=== PATIENT | male | born 1980 | race Caucasian/White ===

== ENCOUNTER 2021-05-04 05:29 | Emergency (ER) | payer BC ==
--- NOTE | 2021-05-04 05:52 | ED Abdominal Pain ---
General Chief Complaint: Abdominal/GI Problems Stated Complaint: ABD PAIN Nursing Triage Note: Pt complaining of mid lower abd pain that started a couple of days ago and has continued to get worse Source of Information: Patient Exam Limitations: No Limitations History of Present Illness Date Seen by Provider: May 04, 2021 Time Seen by Provider: 05:40 Initial Comments 38-year-old male presents with 2-day history of lower abdominal pain. Pain located in the center of his abdomen and with some associated painful urination and dark urine. States that fever yesterday of over 100. Also thinks he might be constipated, but not sure Allergies and Home Medications Allergies Coded Allergies: No Known Drug Allergies (Unverified , 05/04/21) Home Medications Ibuprofen 800 Mg Tablet, 800 MG PO Q8H PRN for PAIN Prescribed by: REJI JAMESON on 05/04/21 0634 Patient Home Medication List Home Medication List Reviewed: Yes Review of Systems Review of Systems Constitutional: No chills, No dizziness; fever, malaise; No weakness EENTM: No Symptoms Reported Respiratory: No Symptoms Reported Cardiovascular: No Symptoms Reported Gastrointestinal: See HPI, Abdominal Pain (midline lower), Constipated ( "maybe"); Denies Diarrhea, Denies Nausea, Denies Poor Appetite, Denies Rectal Bleeding, Denies Vomiting Genitourinary: See HPI, Burning; Denies Discharge, Denies Drainage, Denies Frequency, Denies Flank Pain, Denies Hematuria; Pain; Denies Urgency Musculoskeletal: No back pain, No joint pain Skin: No change in color, No rash Past Ggqtbgh-Lasdwu-Uvvrfk Hx Patient Social History Tobacco Use?: Yes Tobacco type used: Cigarettes Smoking Status: Current Everyday Smoker Substance use?: No Alcohol Use?: Yes Alcohol Frequency: Couple times a week Pt feels they are or have been: No Past Medical History Surgery/Hospitalization HX: Appendectomy Physical Exam Vital Signs Vital Signs - First Documented 05/04/21 05:35 Temp 37.1 Pulse 84 Resp 18 B/P (MAP) 159/81 (107) Pulse Ox 95 O2 Delivery Room Air Capillary Refill : Less Than 3 Seconds Height/Weight/BMI Height: '" Weight: lbs. oz. kg; BMI Method: General Appearance: WD/WN, no apparent distress Respiratory: chest non-tender, lungs clear Cardiovascular: regular rate, rhythm, no edema Gastrointestinal: soft, no organomegaly, no pulsatile mass; No distended, No guarding, No rebound; tenderness (midline lower abdomen-suprapubic); No hernia, No mass, No hepatomegaly, No spleenomegaly Genital/Rectal: normal genital exam (no evidence of hernia); No blood at urethral meatus, No tenderness Back: no CVA tenderness, no vertebral tenderness Neurologic/Psychiatric: alert, normal mood/affect, oriented x 3 Skin: normal color, warm/dry Progress/Results/Core Measures Results/Orders Lab Results Laboratory Tests Test 05/04/21 05:52 05/04/21 05:55 Range/Units Urine Color YELLOW Urine Clarity CLEAR Urine pH 8.5 5-9 Urine Specific [place] 1.015 L 1.016-1.022 Urine Protein 1+ H NEGATIVE Urine Glucose (UA) NEGATIVE NEGATIVE Urine Ketones NEGATIVE NEGATIVE Urine Nitrite NEGATIVE NEGATIVE Urine Bilirubin NEGATIVE NEGATIVE Urine Urobilinogen 1.0 < = 1.0 MG/DL Urine Leukocyte Esterase NEGATIVE NEGATIVE Urine RBC (Auto) NEGATIVE NEGATIVE Urine RBC 0-2 /HPF Urine WBC 0-2 /HPF Urine Squamous Epithelial Cells RARE /HPF Urine Crystals PRESENT H /LPF Urine Amorphous Sediment FEW TRINI PHOSPHATE H /LPF Urine Bacteria NONE /HPF Urine Casts NONE /LPF Urine Mucus SMALL H /LPF Urine Culture Indicated NO White Blood Count 10.3 4.3-11.0 10^3/uL Red Blood Count 4.84 4.35-5.85 10^6/uL Hemoglobin 15.4 13.3-17.7 G/DL Hematocrit 45 40-54 % Mean Corpuscular Volume 93 80-99 FL Mean Corpuscular Hemoglobin 32 25-34 PG Mean Corpuscular Hemoglobin Concent 34 32-36 G/DL Red Cell Distribution Width 12.2 10.0-14.5 % Platelet Count 204 130-400 10^3/uL Mean Platelet Volume 9.9 7.4-10.4 FL Immature Granulocyte % (Auto) 1 % Neutrophils (%) (Auto) 81 H 42-75 % Lymphocytes (%) (Auto) 10 L 12-44 % Monocytes (%) (Auto) 7 0-12 % Eosinophils (%) (Auto) 1 0-10 % Basophils (%) (Auto) 0 0-10 % Neutrophils # (Auto) 8.4 H 1.8-7.8 X 10^3 Lymphocytes # (Auto) 1.0 1.0-4.0 X 10^3 Monocytes # (Auto) 0.7 0.0-1.0 X 10^3 Eosinophils # (Auto) 0.1 0.0-0.3 10^3/uL Basophils # (Auto) 0.0 0.0-0.1 10^3/uL Immature Granulocyte # (Auto) 0.1 0.0-0.1 10^3/uL Sodium Level 136 135-145 MMOL/L Potassium Level 4.3 3.6-5.0 MMOL/L Chloride Level 101 98-107 MMOL/L Carbon Dioxide Level 25 21-32 MMOL/L Anion Gap 10 5-14 MMOL/L Blood Urea Nitrogen 17 7-18 MG/DL Creatinine 1.09 0.60-1.30 MG/DL Estimat Glomerular Filtration Rate > 60 BUN/Creatinine Ratio 16 Glucose Level 159 H 70-105 MG/DL Calcium Level 8.8 8.5-10.1 MG/DL Corrected Calcium 8.8 8.5-10.1 MG/DL Total Bilirubin 0.9 0.1-1.0 MG/DL Aspartate Amino Transf (AST/SGOT) 18 5-34 U/L Alanine Aminotransferase (ALT/SGPT) 31 0-55 U/L Alkaline Phosphatase 79 40-136 U/L Total Protein 6.7 6.4-8.2 GM/DL Albumin 4.0 3.2-4.5 GM/DL My Orders Orders - ROVENSTINE,REJI L DO Urinalysis (05/04/21 05:52) Cbc With Automated Diff (05/04/21 05:52) Comprehensive Metabolic Panel (05/04/21 05:52) Abdomen (Kub) 1 View (05/04/21 05:52) Vital Signs/I&O 05/04/21 05:35 Temp 37.1 Pulse 84 Resp 18 B/P (MAP) 159/81 (107) Pulse Ox 95 O2 Delivery Room Air Blood Pressure Mean: 107 Progress Progress Note : Progress Note discussed normal labs and UA with unremarkable x-ray of abdomen. Tender midline abdominal wall...suspect muscle strain. Discussed w pt and Rx for Ibuprofen. If in 2 days not iimproving or worse advised to follow up either @ local [facility] or return to ER. Pt lives in [place] and working periodically in [place] [employer]. Doesn't actually have a PCP. Diagnostic Imaging Diagonstic Imaging: Xray Plain Films/CT/US/NM/MRI: abdomen Comments KUB - no acute process, no obstruction, non-specific bgp Departure Impression Primary Impression: Abdominal wall pain Disposition: 01 HOME, SELF-CARE Condition: Stable Departure-Patient Inst. Decision time for Depature: 06:27 Referrals: [facility] [place] Patient Instructions: Abdominal Muscle Strain ED Add. Discharge Instructions: follow up in 2 days if not improving or sooner if worse. You can try to be seen at [facility] [place] or return to the ER if unable to get an appointment. All discharge instructions reviewed with patient and/or family. Voiced understanding. Scripts Ibuprofen (Ibuprofen) 800 Mg Tablet 800 MG PO Q8H PRN for PAIN, #30 TAB 0 Refills Prov: REJI JAMESON DO 05/04/21 REJI JAMESON DO May 04, 2021 05:52
[2021-05-04 06:19] LABS: BASOPHILS % (AUTO) 0 % (0-10); EOSINOPHILS # (AUTO) 0.1 10^3/uL (0.0-0.3); EOSINOPHILS % (AUTO) 1 % (0-10); HEMATOCRIT 45 % (40-54); HEMOGLOBIN 15.4 G/DL (13.3-17.7); LYMPHOCYTES % (AUTO) 10 % (12-44); MEAN CORPUSCULAR HEMOGLOBIN 32 PG (25-34); MEAN CORPUSCULAR HGB CONC 34 G/DL (32-36); MEAN CORPUSCULAR VOLUME 93 FL (80-99); MEAN PLATELET VOLUME 9.9 FL (7.4-10.4); MONOCYTES # (AUTO) 0.7 X 10^3 (0.0-1.0); MONOCYTES % (AUTO) 7 % (0-12); NEUTROPHILS # (AUTO) 8.4 X 10^3 (1.8-7.8); NEUTROPHILS % (AUTO) 81 % (42-75); PLATELET COUNT 204 10^3/uL (130-400); WHITE BLOOD COUNT 10.3 10^3/uL (4.3-11.0)
[2021-05-04 06:21] LABS: BILIRUBIN,URINE NEGATIVE (NEGATIVE); CLARITY,URINE CLEAR; COLOR,URINE YELLOW; GLUCOSE, URINE (UA) NEGATIVE (NEGATIVE); KETONES,URINE NEGATIVE (NEGATIVE); NITRITE,URINE NEGATIVE (NEGATIVE); PH,URINE 8.5 (5-9)
[2021-05-04 06:22] LABS: LEUKOCYTE ESTERASE ,URINE NEGATIVE (NEGATIVE); PROTEIN,URINE 1+ (NEGATIVE); RBC,URINE 0-2 /HPF; SQUAMOUS EPITHELIAL CELL,UR RARE /HPF; WBC,URINE 0-2 /HPF
[2021-05-04 06:23] LABS: AMORPHOUS SEDIMENT,UR FEW AMOR PHOSPHATE /LPF
[2021-05-04 06:27] LABS: CARBON DIOXIDE 25 MMOL/L (21-32); CHLORIDE 101 MMOL/L (98-107); POTASSIUM 4.3 MMOL/L (3.6-5.0); SODIUM 136 MMOL/L (135-145)
[2021-05-04 06:30] LABS: BILIRUBIN,TOTAL 0.9 MG/DL (0.1-1.0); BUN/CREATININE RATIO 16; CALCIUM 8.8 MG/DL (8.5-10.1); CREATININE SERUM 1.09 MG/DL (0.60-1.30); GFR ESTIMATED > 60; GLUCOSE 159 MG/DL (70-105)
[2021-05-04 06:31] LABS: ALANINE AMINOTRANSFERASE 31 U/L (0-55); ALKALINE PHOSPHATASE 79 U/L (40-136); TOTAL PROTEIN 6.7 GM/DL (6.4-8.2)
[2021-05-04] MEDS ORDERED: IBUP-1780 PO (06:34)
[2021-05-04 06:36] VITALS: BP 159/81
--- NOTE | 2021-05-04 08:18 | Diagnostic Imaging Report ---
INDICATION: Abdominal pain COMPARISON: None FINDINGS: Single view of the abdomen demonstrates slight constipation without obstruction or ileus. There is no free air. Osseous structures normal. IMPRESSION: Slight constipation Dictated by: Dictated on workstation # [id number]
== END 2021-05-04 06:37 | disposition home or self-care (01) ==
LOC: ER FS 05:30
DX: R10.30 Lower abdominal pain, unspecified (principal); F17.210 Nicotine dependence, cigarettes, uncomplicated
CPT/HCPCS: 36415; 74018; 80053; 81000; 85025

== ENCOUNTER 2021-05-06 10:29 | Inpatient (IN) | payer BC ==
[~2021-05-06] VITALS: Ht 75 cm; Wt 134.0 kg
[~2021-05-06 10:29] MED LIST: IBUP-1780 PO
[2021-05-06 11:35] LABS: BASOPHILS % (AUTO) 0 % (0-10); EOSINOPHILS # (AUTO) 0.1 10^3/uL (0.0-0.3); EOSINOPHILS % (AUTO) 1 % (0-10); HEMATOCRIT 45 % (40-54); HEMOGLOBIN 15.2 g/dL (13.3-17.7); LYMPHOCYTES # (AUTO) 1.1 10^3/uL (1.0-4.0); LYMPHOCYTES % (AUTO) 11 % (12-44); MEAN CORPUSCULAR HEMOGLOBIN 32 pg (25-34); MEAN CORPUSCULAR HGB CONC 34 g/dL (32-36); MEAN CORPUSCULAR VOLUME 96 fL (80-99); MEAN PLATELET VOLUME 10.2 fL (9.0-12.2); MONOCYTES # (AUTO) 0.8 10^3/uL (0.0-1.0); MONOCYTES % (AUTO) 8 % (0-12); NEUTROPHILS # (AUTO) 7.9 10^3/uL (1.8-7.8); NEUTROPHILS % (AUTO) 79 % (42-75); PLATELET COUNT 212 10^3/uL (130-400)
--- NOTE | 2021-05-06 11:35 | ED Abdominal Pain ---
General Chief Complaint: Abdominal/GI Problems Stated Complaint: ABD PAIN Nursing Triage Note: PT AMBULATORY TO [facility] WITH C/O ABDOMINAL PAIN THAT HAS BEEN UNRELIEVED SINCE 05/02/21 WHEN HE WAS IN [place]. PT STATES HE WENT TO [facility] ED AND WAS GIVEN IBUPROFEN THAT HE WAS UNABLE TO RETRIEVE FROM THE PHARMACY. PT STATES ON 05/03/21 HE WENT TO [facility] WALK IN AND WAS TOLD HE HAD A STOMACH VIRUS AND GIVEN A MUSCLE RELAXER AND ANTIEMETIC MEDICATION. PT STATES MUSCLE RELAXER HAS SIGNIFICANTLY HELPED PAIN BUT THE PAIN IS STILL THERE. PT REPORTS DIARRHEA BUT NO NAUSEA OR VOMITING TODAY. Source of Information: Patient Exam Limitations: No Limitations History of Present Illness Date Seen by Provider: May 06, 2021 Time Seen by Provider: 11:33 Initial Comments To ER with abdominal pain that began on 05/02/2021. The pain began midline suprapubic. It has since spread to the entire abdomen. Has had nausea fever up to 102 and diarrhea. He was seen at [place] on the seventh at the hospital. Had labs and urine done. Was suspected that he had abdominal wall strain. He was then followed up at a clinic here in [place] yesterday and given muscle relaxers which did help significantly. Timing/Duration: 1-2 Days Severity/Quality: Cramping Location: Suprapubic Radiation: No Radiation Activities at Onset: None Associated Symptoms: Denies Symptoms Allergies and Home Medications Allergies Coded Allergies: No Known Drug Allergies (Unverified , 05/04/21) Home Medications Ibuprofen 800 Mg Tablet, 800 MG PO Q8H PRN for PAIN Prescribed by: REJI JAMESON on 05/04/21 0634 Patient Home Medication List Home Medication List Reviewed: Yes Review of Systems Review of Systems Constitutional: see HPI, chills, fever EENTM: No Symptoms Reported Respiratory: No Symptoms Reported Cardiovascular: No Symptoms Reported Gastrointestinal: See HPI, Abdominal Pain, Diarrhea, Nausea Genitourinary: No Symptoms Reported Musculoskeletal: no symptoms reported Skin: no symptoms reported Psychiatric/Neurological: No Symptoms Reported Endocrine: No Symptoms Reported Hematologic/Lymphatic: No Symptoms Reported Past Qmffdhc-Fvaofm-Xyheux Hx Patient Social History Tobacco Use?: Yes Tobacco type used: Cigarettes Smoking Status: Current Everyday Smoker Use of E-Cig and/or Vaping dev: No Substance use?: No Alcohol Use?: Yes Alcohol Frequency: Couple times a week Pt feels they are or have been: No Physical Exam Vital Signs Vital Signs - First Documented 05/06/21 10:37 Temp 37.1 Pulse 71 Resp 18 B/P (MAP) 137/79 (98) Pulse Ox 99 O2 Delivery Room Air Capillary Refill : Less Than 3 Seconds Height/Weight/BMI Height: '" Weight: lbs. oz. kg; 237.00 BMI Method: General Appearance: WD/WN, no apparent distress HEENT: PERRL/EOMI, normal ENT inspection Neck: non-tender, full range of motion Respiratory: no respiratory distress, no accessory muscle use Gastrointestinal: normal bowel sounds, soft, tenderness Extremities: normal range of motion, non-tender Neurologic/Psychiatric: alert, normal mood/affect, oriented x 3 Skin: normal color, warm/dry Progress/Results/Core Measures Results/Orders Lab Results Laboratory Tests Test 05/06/21 10:45 05/06/21 11:43 Range/Units White Blood Count 10.0 4.3-11.0 10^3/uL Red Blood Count 4.71 4.30-5.52 10^6/uL Hemoglobin 15.2 13.3-17.7 g/dL Hematocrit 45 40-54 % Mean Corpuscular Volume 96 80-99 fL Mean Corpuscular Hemoglobin 32 25-34 pg Mean Corpuscular Hemoglobin Concent 34 32-36 g/dL Red Cell Distribution Width 12.2 10.0-14.5 % Platelet Count 212 130-400 10^3/uL Mean Platelet Volume 10.2 9.0-12.2 fL Immature Granulocyte % (Auto) 0 % Neutrophils (%) (Auto) 79 H 42-75 % Lymphocytes (%) (Auto) 11 L 12-44 % Monocytes (%) (Auto) 8 0-12 % Eosinophils (%) (Auto) 1 0-10 % Basophils (%) (Auto) 0 0-10 % Neutrophils # (Auto) 7.9 H 1.8-7.8 10^3/uL Lymphocytes # (Auto) 1.1 1.0-4.0 10^3/uL Monocytes # (Auto) 0.8 0.0-1.0 10^3/uL Eosinophils # (Auto) 0.1 0.0-0.3 10^3/uL Basophils # (Auto) 0.0 0.0-0.1 10^3/uL Immature Granulocyte # (Auto) 0.0 0.0-0.1 10^3/uL Sodium Level 138 135-145 MMOL/L Potassium Level 4.1 3.6-5.0 MMOL/L Chloride Level 102 98-107 MMOL/L Carbon Dioxide Level 27 21-32 MMOL/L Anion Gap 9 5-14 MMOL/L Blood Urea Nitrogen 16 7-18 MG/DL Creatinine 1.12 0.60-1.30 MG/DL Estimat Glomerular Filtration Rate > 60 BUN/Creatinine Ratio 14 Glucose Level 132 H 70-105 MG/DL Calcium Level 9.2 8.5-10.1 MG/DL Corrected Calcium 9.3 8.5-10.1 MG/DL Total Bilirubin 0.9 0.1-1.0 MG/DL Aspartate Amino Transf (AST/SGOT) 23 5-34 U/L Alanine Aminotransferase (ALT/SGPT) 41 0-55 U/L Alkaline Phosphatase 110 40-136 U/L Total Protein 7.1 6.4-8.2 GM/DL Albumin 3.9 3.2-4.5 GM/DL Lipase 11 8-78 U/L Urine Color ORANGE Urine Clarity CLEAR Urine pH 8.0 5-9 Urine Specific [place] 1.025 H 1.016-1.022 Urine Protein 2+ H NEGATIVE Urine Glucose (UA) NEGATIVE NEGATIVE Urine Ketones TRACE H NEGATIVE Urine Nitrite NEGATIVE NEGATIVE Urine Bilirubin NEGATIVE NEGATIVE Urine Urobilinogen 1.0 < = 1.0 MG/DL Urine Leukocyte Esterase NEGATIVE NEGATIVE Urine RBC (Auto) NEGATIVE NEGATIVE Urine RBC NONE /HPF Urine WBC 0-2 /HPF Urine Crystals PRESENT H /LPF Urine Amorphous Sediment RARE TRINI PHOSPHATE H /LPF Urine Bacteria FEW H /HPF Urine Casts NONE /LPF Urine Mucus MODERATE H /LPF Urine Culture Indicated NO My Orders Orders - LINUS CABRERA [employer] CLERK Cbc With Automated Diff (05/06/21 11:30) Comprehensive Metabolic Panel (05/06/21 11:30) Lipase (05/06/21 11:30) Ua Culture If Indicated (05/06/21 11:30) Ed Iv/Invasive Line Start (05/06/21 11:30) Ct Abdomen/Pelvis W (05/06/21 11:35) Lactated Ringers (Lr 1000 Ml Iv Solution (05/06/21 11:45) Iohexol Injection (Omnipaque 350 Mg/Ml 1 (05/06/21 12:45) Received Contrast (Hold Metformin- Contr (05/06/21 12:45) Sodium Chloride Flush (Catheter Flush Sy (05/06/21 12:45) Ns (Ivpb) (Sodium Chloride 0.9% Ivpb Bag (05/06/21 12:45) Piperacillin Sodium/Tazobactam (Zosyn Vi (05/06/21 13:00) Medications Given in ED Current Medications Medications Dose Ordered Sig/[place] Route Start Time Stop Time Status Last Admin Dose Admin Iohexol 100 ml ONCE ONCE IV 05/06/21 12:45 05/06/21 12:46 DC 05/06/21 12:42 79 ML Sodium Chloride 100 ml ONCE ONCE IV 05/06/21 12:45 05/06/21 12:46 DC 05/06/21 12:42 80 ML Vital Signs/I&O 05/06/21 10:37 Temp 37.1 Pulse 71 Resp 18 B/P (MAP) 137/79 (98) Pulse Ox 99 O2 Delivery Room Air Blood Pressure Mean: 98 Departure Impression Primary Impression: Perforated diverticulum of large intestine Additional Impression: Diverticulitis of intestine Disposition: ADMITTED INPATIENT Condition: Stable Admissions Decision to Admit Reason: Admit from ER (General) Decision to Admit/Date: May 06, 2021 Time/Decision to Admit Time: 13:10 Departure-Patient Inst. Referrals: NO,LOCAL PHYSICIAN (PCP/Family) Primary Care Physician LINUS CABRERA APRN May 06, 2021 11:35
[2021-05-06 11:36] LABS: ALBUMIN 3.9 GM/DL (3.2-4.5)
[2021-05-06 11:37] LABS: CHLORIDE 102 MMOL/L (98-107); POTASSIUM 4.1 MMOL/L (3.6-5.0); SODIUM 138 MMOL/L (135-145)
[2021-05-06 11:38] LABS: CALCIUM 9.2 MG/DL (8.5-10.1)
[2021-05-06 11:39] LABS: GLUCOSE 132 MG/DL (70-105); TOTAL PROTEIN 7.1 GM/DL (6.4-8.2)
[2021-05-06 11:40] LABS: CARBON DIOXIDE 27 MMOL/L (21-32)
[2021-05-06 11:41] LABS: BILIRUBIN,TOTAL 0.9 MG/DL (0.1-1.0)
[2021-05-06 11:42] LABS: ALKALINE PHOSPHATASE 110 U/L (40-136)
[2021-05-06 11:43] LABS: CREATININE SERUM 1.12 MG/DL (0.60-1.30); GFR ESTIMATED > 60
[2021-05-06 11:44] LABS: BUN/CREATININE RATIO 14
[2021-05-06 11:45] LABS: ALANINE AMINOTRANSFERASE 41 U/L (0-55)
[2021-05-06] MEDS ORDERED: LACTATED RINGERS 1,000 ML IV SCH (11:45)
[2021-05-06 11:46] LABS: LIPASE 11 U/L (8-78)
[2021-05-06 11:51] LABS: BILIRUBIN,URINE NEGATIVE (NEGATIVE); CLARITY,URINE CLEAR; COLOR,URINE ORANGE; GLUCOSE, URINE (UA) NEGATIVE (NEGATIVE); KETONES,URINE TRACE (NEGATIVE); LEUKOCYTE ESTERASE ,URINE NEGATIVE (NEGATIVE); NITRITE,URINE NEGATIVE (NEGATIVE); PROTEIN,URINE 2+ (NEGATIVE)
[2021-05-06 12:05] LABS: AMORPHOUS SEDIMENT,UR RARE AMOR PHOSPHATE /LPF; BACTERIA,URINE FEW /HPF; WBC,URINE 0-2 /HPF
[2021-05-06] MEDS ORDERED: NS 100 ML (IVPB) BAG IV ONE (12:45)
[2021-05-06] MEDS ORDERED: HOLD METFORMIN - RECEIVED CONTRAST 20 ML VIAL IV SCH (12:45)
[2021-05-06] MEDS ORDERED: CATHETER FLUSH 10 ML SYR IV PRN (12:45)
[2021-05-06] MEDS ORDERED: IOHEXOL 350 MG/ML 100 ML (OMNIPAQUE 350) VIAL IV ONE (12:45)
[2021-05-06] MEDS ORDERED: PIPERACILLIN SODIUM/TAZOBACTAM 4.5 GM in NS (IVPB) 100 ML IV ONE (13:00)
--- NOTE | 2021-05-06 13:03 | Diagnostic Imaging Report ---
PROCEDURE: CT abdomen and pelvis with contrast. TECHNIQUE: Multiple contiguous axial images were obtained through the abdomen and pelvis after administration of intravenous contrast. Auto Exposure Controls were utilized during the CT exam to meet ALARA standards for radiation dose reduction. All CT scans use one or more of the following dose optimizing techniques: automated exposure control, MA and/or KvP adjustment based on patient size and exam type or iterative reconstruction. INDICATION: Nausea, vomiting, generalized abdominal pain. COMPARISON: None FINDINGS: Lung bases are clear. The gallbladder is contracted but appears unremarkable. Solid organs, vascular structures and small bowel grossly unremarkable. There is focal area of inflammatory change involving the mid sigmoid colon with gas in the surrounding mesentery. Findings likely represent acute diverticulitis with a contained perforation. A single diverticulum which appears to have been the focus of the perforation site does contain some hyperdense material. Cannot fully exclude a tiny hemorrhage. Please correlate with the history of hematochezia. There is no abscess. There is no ascites. The appendix is surgically absent. The urinary bladder and prostate are normal. Osseous structures are grossly unremarkable. IMPRESSION: Likely acute diverticulitis with contained focal perforation involving the sigmoid colon. No abscess, free air or free fluid is identified. Followup recommended to ensure resolution. Dictated by: Dictated on workstation # [id number]
[2021-05-06] MEDS ORDERED: ONDANSETRON 4 MG/2 ML (SDV) Z0FRAN IV PRN (14:45)
[2021-05-06] MEDS ORDERED: ACETAMINOPHEN 325 MG TABLET PO PRN (14:45)
[2021-05-06] MEDS ORDERED: fentaNYL INJ 100 MCG/2 ML AMP IV PRN (14:45)
[2021-05-06] MEDS ORDERED: IBUPROFEN 600 MG (MOTRIN) TAB PO PRN (14:45)
[2021-05-06] MEDS: LACTATED RINGERS 1,000 ML IV SCH ×2 (14:58→21:31)
[2021-05-06 16:06] VITALS: BP 124/81
[2021-05-06 19:54] VITALS: BP 124/82
[2021-05-06] MEDS: PIPERACILLIN/TAZO 4.5 GM/NS 100 ML IV SCH ×2 (19:58)
[2021-05-06] MEDS ORDERED: fentaNYL INJ 100 MCG/2 ML AMP IVP PRN (20:00)
[2021-05-06] MEDS ORDERED: HYDROcodone/APAP 7.5 MG/325 MG (LORTAB, LORCET PLUS) TABLET PO PRN (20:00)
--- NOTE | 2021-05-06 20:00 | HISTORY AND PHYSICAL ---
DATE OF SERVICE: HISTORY OF PRESENT ILLNESS: The patient is a 41-year-old male who presented to the Emergency Department today with pain more localized towards the left lower abdominal quadrant. He states that the pain has been persistent for the past 4 to 5 days. He also did develop nausea; however, no vomiting. A CT scan was performed, which did show diverticulitis as well as small contained bubbles of free air consistent with a contained perforated sigmoid diverticulitis. Since being admitted, his pain has been under control and he has not had any fevers. He has not had a colonoscopy up to this point in his life. PAST MEDICAL HISTORY: None. MEDICATIONS: None. ALLERGIES: No known drug allergies. MEDICATIONS: Ibuprofen 800 mg q.8 hours p.r.n. SOCIAL HISTORY: Positive smoke 20 pack years. Social alcohol. VITAL SIGNS: Temperature 37.1, blood pressure 137/79, pulse 71, respirations 18, pulse ox 99% on room air. REVIEW OF SYSTEMS: Well-nourished male currently in no acute distress. He is not experiencing any shortness of breath or difficulty breathing. No chest pain, palpitations, diaphoresis. Mild anorexia. No nausea, vomiting. He is unsure when he had his last bowel movement. He does not report any red blood per rectum nor any dark tarry stools. No fever, chills, no recent inadvertent weight loss. All other review of systems negative. PHYSICAL EXAMINATION: CHEST: Clear. Good breath sounds bilaterally. HEART: Regular, no murmurs. EXTREMITIES: No lower extremity edema, negative Homans sign. HEENT: No scleral icterus. NECK: No cervical lymphadenopathy. ABDOMEN: Soft, nondistended. There is pain in the left lower abdominal quadrant with voluntary guarding, no rebound. SKIN: Warm, dry. LABORATORY DATA: WBC 10.0, hemoglobin 15.2, hematocrit 45, platelets 212. BUN 16, creatinine 1.12. ASSESSMENT AND PLAN: A 41-year-old male with complicated sigmoid diverticulitis with microscopic perforation, which has walled off and contained. Recommendation is to proceed with conservative medical management with bowel rest and clear liquid diet as well as antibiotics and allow the inflammation to subside on its own. Once he is feeling better, we will start a clear liquid diet and advance as tolerated. In approximately 8 weeks, he will need a followup colonoscopy. We will also give him the option of proceeding with a sigmoid colon resection due to the complicated nature of the diverticulitis. Job ID: [id number] DocumentID: [id number] Dictated Date: 05/06/2021 19:48:30 Community Development Aide Date: 05/06/2021 20:00:20 Dictated By: RUTH ANN HICKS MD
[2021-05-07 00:45] VITALS: BP 107/65
[2021-05-07] MEDS: LACTATED RINGERS 1,000 ML IV SCH ×2 (01:23→08:11)
[2021-05-07 04:35] VITALS: BP 117/76
[2021-05-07] MEDS: PIPERACILLIN/TAZO 4.5 GM/NS 100 ML IV SCH ×4 (04:35→12:27)
[2021-05-07 05:51] LABS: BASOPHILS % (AUTO) 0 % (0-10); EOSINOPHILS # (AUTO) 0.2 10^3/uL (0.0-0.3); EOSINOPHILS % (AUTO) 3 % (0-10); HEMATOCRIT 42 % (40-54); HEMOGLOBIN 14.1 g/dL (13.3-17.7); LYMPHOCYTES # (AUTO) 0.8 10^3/uL (1.0-4.0); LYMPHOCYTES % (AUTO) 13 % (12-44); MEAN CORPUSCULAR HEMOGLOBIN 32 pg (25-34); MEAN CORPUSCULAR HGB CONC 33 g/dL (32-36); MEAN CORPUSCULAR VOLUME 97 fL (80-99); MONOCYTES # (AUTO) 0.6 10^3/uL (0.0-1.0); MONOCYTES % (AUTO) 10 % (0-12); NEUTROPHILS # (AUTO) 4.4 10^3/uL (1.8-7.8); NEUTROPHILS % (AUTO) 73 % (42-75); PLATELET COUNT 185 10^3/uL (130-400)
[2021-05-07 08:00] VITALS: BP 125/82
[2021-05-07] MEDS ORDERED: PANTOPRAZOLE 40 MG (PROTONIX) TAB PO SCH (09:00)
--- NOTE | 2021-05-07 10:39 | Progress Note ---
Subjective Date Seen by a Provider: May 07, 2021 Time Seen by a Provider: 10:15 Subjective/Events-last exam Patient seen with Dr. Sam. Patient reports doing well. Sitting in bedside chair. Denies any N/V, Fever/chills or abdominal pain. Does report some tenderness with deep palpation in the mid-lower abdomen. Tolerating clear liquid diet. Reports had a BM last night with no blood. Does report that he is hungry and would like to take a shower. Objective Exam Vital Signs Date Time Temp Pulse Resp B/P (MAP) Pulse Ox O2 Delivery O2 Flow Rate FiO2 05/07/21 08:00 36.1 61 18 125/82 (96) 99 Room Air 05/07/21 04:35 36.1 61 18 117/76 (90) 99 Room Air 05/07/21 00:45 36.1 61 18 107/65 (79) 98 Room Air 05/06/21 20:30 Room Air 05/06/21 19:54 36.0 64 18 124/82 (96) 97 Room Air 05/06/21 16:06 36.5 60 18 124/81 (95) 97 Room Air 05/06/21 14:09 99 Room Air 05/06/21 13:47 71 18 137/79 (98) 99 05/06/21 10:37 37.1 71 18 137/79 (98) 99 Room Air I & O 05/07/21 07:00 Intake Total 800 ml Balance 800 ml Capillary Refill : Less Than 3 Seconds General Appearance: No Apparent Distress, WD/WN Neck: Full Range of Motion, Non Tender Respiratory: No Accessory Muscle Use, No Respiratory Distress Cardiovascular: Regular Rate, Rhythm, No Edema Gastrointestinal: normal bowel sounds, soft, tenderness (with deep palpation in the mid-lower abdomen, otherwise non-tender) Extremity: Normal Inspection, Normal Range of Motion Neurologic/Psychiatric: Alert, Oriented x3 Skin: Normal Color, Warm/Dry Results Lab Laboratory Tests 05/06/21 10:45: White Blood Count 10.0, Red Blood Count 4.71, Hemoglobin 15.2, Hematocrit 45, Mean Corpuscular Volume 96, Mean Corpuscular Hemoglobin 32, Mean Corpuscular Hemoglobin Concent 34, Red Cell Distribution Width 12.2, Platelet Count 212, Mean Platelet Volume 10.2, Immature Granulocyte % (Auto) 0, Neutrophils (%) (Auto) 79H, Lymphocytes (%) (Auto) 11L, Monocytes (%) (Auto) 8, Eosinophils (%) (Auto) 1, Basophils (%) (Auto) 0, Neutrophils # (Auto) 7.9H, Lymphocytes # (Auto) 1.1, Monocytes # (Auto) 0.8, Eosinophils # (Auto) 0.1, Basophils # (Auto) 0.0, Immature Granulocyte # (Auto) 0.0, Sodium Level 138, Potassium Level 4.1, Chloride Level 102, Carbon Dioxide Level 27, Anion Gap 9, Blood Urea Nitrogen 16, Creatinine 1.12, Estimat Glomerular Filtration Rate > 60, BUN/Creatinine Ratio 14, Glucose Level 132H, Calcium Level 9.2, Corrected Calcium 9.3, Total Bilirubin 0.9, Aspartate Amino Transf (AST/SGOT) 23, Alanine Aminotransferase (ALT/SGPT) 41, Alkaline Phosphatase 110, Total Protein 7.1, Albumin 3.9, Lipase 11 05/06/21 11:43: Urine Color ORANGE, Urine Clarity CLEAR, Urine pH 8.0, Urine Specific [place] 1.025H, Urine Protein 2+H, Urine Glucose (UA) NEGATIVE, Urine Ketones TRACEH, Urine Nitrite NEGATIVE, Urine Bilirubin NEGATIVE, Urine Urobilinogen 1.0, Urine Leukocyte Esterase NEGATIVE, Urine RBC (Auto) NEGATIVE, Urine RBC NONE, Urine WBC 0-2, Urine Crystals PRESENTH, Urine Amorphous Sediment RARE TRINI PHOSPHATEH, Urine Bacteria FEWH, Urine Casts NONE, Urine Mucus MODERATEH, Urine Culture Indicated NO 05/07/21 05:32: White Blood Count 6.0, Red Blood Count 4.36, Hemoglobin 14.1, Hematocrit 42, Mean Corpuscular Volume 97, Mean Corpuscular Hemoglobin 32, Mean Corpuscular Hemoglobin Concent 33, Red Cell Distribution Width 12.2, Platelet Count 185, Mean Platelet Volume 10.0, Immature Granulocyte % (Auto) 1, Neutrophils (%) (Auto) 73, Lymphocytes (%) (Auto) 13, Monocytes (%) (Auto) 10, Eosinophils (%) (Auto) 3, Basophils (%) (Auto) 0, Neutrophils # (Auto) 4.4, Lymphocytes # (Auto) 0.8L, Monocytes # (Auto) 0.6, Eosinophils # (Auto) 0.2, Basophils # (Auto) 0.0, Immature Granulocyte # (Auto) 0.0 Assessment/Plan Assessment/Plan Assess & Plan/Chief Complaint A 41 year old male with acute diverticulitis with microperforation. VSS WBC 6.0 Will advance to low residue diet. Will need a colonoscopy as an outpatient in 6 weeks. JEAN-PIERRE MCCLURE APRN May 07, 2021 10:39
[2021-05-07] MEDS ORDERED: AMOX-358 PO (10:44)
[2021-05-07] MEDS ORDERED: HYDR-3817 PO (10:44)
--- NOTE | 2021-05-07 10:46 | Discharge Inst-Surgical ---
D/C Lap Instructions-KURT Reconcile Patient Problems Problems Reviewed?: Yes New, Converted, or Re-Newed RX: RX on Chart Follow Up Appt in 6 weeks for colonoscopy Call our office to schedule - Dr. Sam ([phone]) Activity as tolerated No driving while on pain medications Low residue diet (fiber restricting) for 6 weeks, then High Fiber Diet 25g or more per day Drink 64 fluid oz or more of fluids per day. Symptoms to Report: Fever over 101 degree F, Nausea/Vomiting If any problems/questions: Contact your physician or go to Emergency Room JEAN-PIERRE MCCLURE APRN May 07, 2021 10:46
[2021-05-07 12:00] VITALS: BP 123/79
== END 2021-05-07 16:15 | disposition home or self-care (01) | DRG 392 ==
LOC: EDUNIT# 10:29 → ER 10:30 → 4TH 12:53
PROVIDERS: ADMIT Surgery; ATTEND Surgery
DX: K57.20 Diverticulitis of large intestine with perforation and abscess without bleeding (principal); F17.210 Nicotine dependence, cigarettes, uncomplicated
CPT/HCPCS: 36415; 74177; 80053; 81000; 83690; 85025